=== PATIENT | male | born 1950 | race African-American/Black ===

== ENCOUNTER 2019-03-10 15:16 | Outpatient (CLI) | payer MEDICARE ==
--- NOTE | 2019-03-10 16:19 | MRI ---
MRI Upper Ext Jt Lt WO Con HISTORY: Left shoulder pain and history of fall in November 2017. History of multiple previous surgeri es. COMPARISON: None. FINDINGS: Postop acromioplasty changes are noted. There is fluid signal change within the substance o f the supraspinatus tendon there appear to be some intact bursal and articular sided fibers present although there does appear to be a bursal sided communication of this tear. This involves the almost entire tendon there is marked tendinopathy tendinosis changes of the posterior fibers. There is a delaminated element of this tear as there is fluid density extending to the musculotendinous junction of the infraspinatus tendon. There is also edema change within the muscle compatible with area of muscle strain. Tendinosis is also present within the infraspinatus tendon. There is a near-complete subscapularis tendon tear, there may be a few superior fibers still intact h owever the majority of the tendon is retracted by approximately 2.5 cm. The biceps tendon does maintain a normal position within the bicipital groove. There is tendinosis of the intra-articular po rtion of the biceps tendon with increased signal change associated the superior labrum consistent with degeneration and a chronic tear. These changes extend to involve the posterior superior labrum a lthough there are some portions of the posterior superior labrum that are relatively normal in appearance. There is marked irregularity to the posterior inferior labrum also with subchondral bony changes of the glenoid in this region. The inferior glenohumeral ligament is intact. There are also degenerative changes with findings that would suggest a chondral labral separation of the anterior in ferior labrum. There is also evidence for articular cartilage loss of the humeral head. There is mild atrophy of the subscapularis muscle, the supra and infraspinatus muscles show no signif icant atrophy. IMPRESSION: 1. Fluid density signal change within the anterior half of the supraspinatus tendon consistent with a fairly extensive intrasubstance tear, there is are a few thin bursal and articular sided fibers still intact although there does appear to be a full-thickness defect within the bursal sided fibers. There is moderate tendinosis of the more posterior aspect of the supraspinatus as well as tendinosis change of the infraspinatus tendon with a delaminating tear extending into the musculotend inous junction of the infraspinatus and edema change of the muscle belly. 2. Near-complete subscapularis tendon tear which is retracted by approximately 2.5 cm, there may be a few of the superior fibers of the subscapularis tendon still intact. 3. 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
== END 2019-03-10 15:17 | disposition home or self-care (01) ==
LOC: TBSIIMAG 15:16
PROVIDERS: ATTEND Orthopaedic Surgery
DX: M75.102 Unspecified rotator cuff tear or rupture of left shoulder, not specified as traumatic (principal); S46.912A Strain of unspecified muscle, fascia and tendon at shoulder and upper arm level, left arm, initial encounter; M25.412 Effusion, left shoulder; M19.012 Primary osteoarthritis, left shoulder

== ENCOUNTER 2019-03-28 13:15 | Outpatient (CLI) | payer MEDICARE ==
[2019-03-28 15:05] LABS: #Eosinphils 0.2 thou/uL (0.0-0.7); #Lymphocytes 2.3 thou/uL (1.20-3.40); #Monocytes 0.7 thou/uL (0.11-0.59); %Basophils 0.6 % (0.0-1.0); %Lymphocytes 32.1 % (21.0-51.0); %Monocytes 10.2 % (0.0-10.0); %Neutrophils 54.2 % (42.0-75.0); Mean Corpuscular HGB CONC 33.7 g/dL (32.0-36.0); Mean Corpuscular Hemoglobin 29.5 pg (27.0-31.0); Mean Corpuscular Volume 87.4 fL (78.0-98.0); Mean Platelet Volume 7.5 fL (7.4-10.4); Platelet Count 275 thou/uL (130-400); Red Blood Cell (RBC) Count 4.74 mill/uL (4.70-6.10); White Blood Cell (WBC) Count 7.3 thou/uL (4.8-10.8)
[2019-03-28 15:24] LABS: Anion Gap 12 mmol/L (10-20); BUN (Urea Nitrogen) 22 mg/dL (8.4-25.7); Calc. Creatinine Clearance 0 mL/min (70-130); Calcium 9.4 mg/dL (7.8-10.44); Carbon Dioxide 25 mmol/L (23-31); Chloride 105 mmol/L (98-107); Estimated GFR-MDRD 54; Glucose 120 mg/dL (80-115); Potassium 3.8 mmol/L (3.5-5.1); Sodium 138 mmol/L (136-145)
== END 2019-03-28 13:16 | disposition home or self-care (01) ==
LOC: LABBT 13:15
PROVIDERS: ATTEND Orthopaedic Surgery
DX: Z01.818 Encounter for other preprocedural examination (principal); M75.102 Unspecified rotator cuff tear or rupture of left shoulder, not specified as traumatic
CPT/HCPCS: 80048; 85025; 93005; 93010

== ENCOUNTER 2019-03-31 06:56 | Day surgery (SDC) | payer MEDICARE ==
[2019-03-28 13:42] VITALS: BMI 53.1
[2019-03-31] MEDS ORDERED: CEFAZOLIN 2 GM in Premix Bag 1 BAG IVPB SCH (07:30)
[2019-03-31] MEDS ORDERED: Midazolam HCl 2 mg/2 ml Vial ONE (08:15)
[2019-03-31] MEDS ORDERED: Fentanyl 100 MCG/2 ML VIAL ONE (08:15)
[2019-03-31] MEDS ORDERED: SUGAMMADEX SODIUM 200 MG/2 ML VIAL ONE (11:51)
[2019-03-31] MEDS ORDERED: Ropivacaine 0.5% HCl/PF (150 MG/30 ML VIAL) ONE (12:05)
[2019-03-31] MEDS ORDERED: Ropivacaine 0.2% HCl/PF (40 MG/20 ML VIAL) ONE (12:05)
[2019-03-31] MEDS ORDERED: Ropivacaine 0.2% 550 ML 550 ML NERVE BLCK SCH (12:33)
[2019-03-31] MEDS ORDERED: Promethazine HCl 25 MG/ML VIAL IM PRN (12:33)
[2019-03-31] MEDS ORDERED: HYDROcodone/Acetaminophen 10/325 mg Tablet PO PRN ×2 (12:33)
[2019-03-31] MEDS ORDERED: traMADol HCl 50 MG TAB PO PRN ×2 (12:33)
[2019-03-31] MEDS ORDERED: Zolpidem Tartrate 5 MG TAB PO PRN (12:33)
[2019-03-31] MEDS ORDERED: Ondansetron PF 4 MG/2 ML Vial IVP PRN (12:33)
[2019-03-31] MEDS ORDERED: Fentanyl 100 MCG/2 ML VIAL SLOW IVP PRN (12:34)
[2019-03-31] MEDS ORDERED: Glycopyrrolate 0.2 MG/ML 5 ML SYRINGE ONE (13:32)
[2019-03-31] MEDS ORDERED: Rocuronium Bromide 10 MG/ML (10ML VIAL) ONE (13:32)
[2019-03-31] MEDS ORDERED: PHENYLEPHRINE-NS 100 MCG/ML 10 ML SYRINGE ONE (13:32)
[2019-03-31] MEDS ORDERED: Lidocaine 1% PF 5 ML VIAL ONE (13:32)
[2019-03-31] MEDS ORDERED: ePHEDrine 50 MG/ML VIAL ONE (13:32)
[2019-03-31] MEDS ORDERED: Ondansetron PF 4 MG/2 ML Vial ONE (13:32)
[2019-03-31] MEDS ORDERED: PROPOFOL 200 MG/20 ML VIAL ONE (13:32)
--- NOTE | 2019-04-01 11:39 | OP ---
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 PROCEDURES PERFORMED: Open left shoulder acromioplasty followed by open rotator cuff repair to include supraspinatus and subscapularis, followed by open biceps tenodesis. CLOTH GRADER SUPERVISOR: Hayder Crocker PA-C ESTIMATED BLOOD LOSS: Minimal. COMPLICATIONS: None. ANESTHESIA: He had general anesthetic. He also had a preoperative block. IMPLANTS: Included BioComposite tenodesis screw to fix his biceps. We also used the 2 titanium double-loaded screws as well as one 4.75 SwiveLock for a double-row repair. DISPOSITION: He went to recovery room in stable condition. INDICATIONS: A 68-year-old male, who had an open left shoulder surgery previously nearly 25 to 30 years ago and at this time, he was found to have a large cuff tear and poor function and at this time willing to have surgery. DESCRIPTION OF PROCEDURE: After all appropriate consent forms were explained and signed, he was taken to the operating room and at this time was given general anesthetic. He was placed in a modified beach chair position with all bony prominences were well padded. At this time, the left shoulder and upper extremity were prepped and draped in standard surgical fashion. Previous incision was used and a 10 blade was used to cut down through the skin. Bovie was used to coagulate any brisk venous bleeding. Skin flaps were undermined, so that we had a portable window to work through. Anterior one-third of the deltoid was taken down off the acromion medially to the AC joint in full thickness flaps. Small anterior acromioplasty was performed as previous acromioplasty had been performed. We had access to the underlying tissue. The bursa was removed. Subscapularis tear was noted. Supraspinatus tear was noted. Biceps tendon was tagged and cut out from the joint using the scissors. The biceps tenodesis was performed in standard fashion using a BioComposite Bio-Tenodesis screw. We then performed repair of supraspinatus by freshening up the edges with a 15 blade, removing all soft tissue from its insertion site on the tuberosity, placing a double-loaded titanium anchor, running the threads to the tendon in a mattress fashion, tying these and then taking all 4 threads distal lateral for a double-row repair. A 4.75 BioComposite SwiveLock was used for this. At this time, we turned our attention to the chronic large subscapularis tear and this was freed up from the adhesions medially to the coracoid and we were then able to place a traction stitch in the subscapularis tendon. The edge was freed up and freshened up using blade and scissors. Again, we cleaned off the bony insertion, used an anchor and placed multiple sutures through this for repair of our subscapularis. This was tied down with the arm at about 20 and 25 degrees of external rotation. At this time, we thoroughly irrigated and dried our wound, placed multiple Ethibond sutures through the deltoid fascia and through the bony acromion for our repair. We then over-reamed this with a Vicryl. 2-0 Vicryl and Prolene sutures were used on skin. Bulky sterile dressing was applied. The patient was awakened and taken to recovery room in stable condition. All counts were correct at the end of the case and he received preoperative IV antibiotics. Job ID: [id number]
== END 2019-03-31 15:05 | disposition home or self-care (01) ==
LOC: SDC 06:56
PROVIDERS: ATTEND Orthopaedic Surgery
PROC: 0LM20ZZ Reattachment of Left Shoulder Tendon, Open Approach (ICD-10-PCS; principal; 2019-03-31)
PROC: 0LS20ZZ Reposition Left Shoulder Tendon, Open Approach (ICD-10-PCS; 2019-03-31)
PROC: 0LQ20ZZ Repair Left Shoulder Tendon, Open Approach (ICD-10-PCS; 2019-03-31)
PROC: 0RBH0ZZ Excision of Left Acromioclavicular Joint, Open Approach (ICD-10-PCS; 2019-03-31)
PROC: 0LS20ZZ Reposition Left Shoulder Tendon, Open Approach (ICD-10-PCS; 2019-03-31)
DX: M75.102 Unspecified rotator cuff tear or rupture of left shoulder, not specified as traumatic (principal); I10 Essential (primary) hypertension; E11.9 Type 2 diabetes mellitus without complications; E78.5 Hyperlipidemia, unspecified; I25.10 Atherosclerotic heart disease of native coronary artery without angina pectoris; G47.30 Sleep apnea, unspecified; E66.9 Obesity, unspecified; Z68.43 Body mass index [BMI] 50.0-59.9, adult; Z79.4 Long term (current) use of insulin; Z79.899 Other long term (current) drug therapy
CPT/HCPCS: 23130; 23412; 23430; 82962; A4306; C1713 ×2; 36416; J0690; J2001; J2250; J2405; J2704; J2795; J3010; J3370; J3490; J7050

== ENCOUNTER 2021-11-03 14:43 | Outpatient (CLI) | payer MEDICARE ==
[2021-11-03 16:08] LABS: Bilirubin Neg (Negative); Blood, Urine Negative (Negative); Clarity Clear (Clear); Glucose, Urine (Dipstick) >=1000 mg/dL (Negative); Ketone, Urine Negative (Negative); Leukocyte Negative (Negative); Nitrite Negative (Negative); Protein, Urine (Dipstick) 15 mg/dl (Neg-Trace); Specific Gravity, Urine 1.005 (1.002-1.036); Urobilinogen Normal mg/dL (Less than 2)
[2021-11-03 16:09] LABS: #Monocytes 0.1 10x3/uL (0.0-1.1); #Neutrophils 7.8 10x3/uL (1.5-8.4); %Basophils 0.4 % (0.0-2.0); %Eosinophils 0.1 % (0.0-6.0); %Lymphocytes 9.4 % (18.0-47.0); %Monocytes 1.6 % (0.0-10.0); %Neutrophils 88.1 % (40.0-75.0); Hemoglobin 12.7 g/dL (13.5-17.5); Mean Corpuscular HGB CONC 32.2 g/dL (32.0-36.0); Mean Corpuscular Hemoglobin 29.7 pg (27.0-33.0); Mean Corpuscular Volume 92.5 fl (81.2-95.1); Platelet Count 316 10x3/uL (150-450); Red Blood Cell (RBC) Count 4.27 10x6/uL (4.32-5.72); White Blood Cell (WBC) Count 8.9 10x3/uL (3.5-10.5)
[2021-11-04 07:58] LABS: SARS-CoV-2 PCR by NAA Not Detected (NotDetected)
== END 2021-11-03 14:44 | disposition home or self-care (01) ==
LOC: LABBT 14:43 → MERGE 14:43 → LABBT 14:44
PROVIDERS: ATTEND Orthopaedic Surgery Hand Surgery
DX: Z01.818 Encounter for other preprocedural examination (principal); Z20.822 Contact with and (suspected) exposure to COVID-19
CPT/HCPCS: 81003; 85025; 93005; 93010; U0003; U0005

== ENCOUNTER 2021-11-07 12:44 | Day surgery (SDC) | payer MEDICARE ==
[2021-11-04 09:17] VITALS: BMI 47.7
[2021-11-07] MEDS ORDERED: ceFAZolin 2 GM/DEX 5% 100 ML BAG ONE ×3 (13:51→16:38)
[2021-11-07] MEDS ORDERED: Bacitracin Zinc Ointment 30 gm TUBE ONE (16:01)
[2021-11-07] MEDS ORDERED: Bupivacaine PF 0.5% 30 ML VIAL ONE (16:01)
[2021-11-07] MEDS ORDERED: Thrombin 5000 UNITS/5 ML VIAL ONE (16:01)
[2021-11-07] MEDS ORDERED: Betamet Acet/Betamet Na Ph 30 MG/5 ML VIAL ONE (16:01)
[2021-11-07] MEDS ORDERED: Bupivacaine 0.25% 10 ML VIAL ONE (16:01)
[2021-11-07] MEDS ORDERED: Fentanyl 100 MCG/2 ML VIAL ONE ×2 (16:27→18:18)
[2021-11-07] MEDS ORDERED: ePHEDrine 50 MG/ML VIAL ONE (16:45)
[2021-11-07] MEDS ORDERED: Glycopyrrolate 0.2 MG/ML 5 ML SYRINGE ONE (16:45)
[2021-11-07] MEDS ORDERED: PROPOFOL 200 MG/20 ML VIAL ONE (16:45)
[2021-11-07] MEDS ORDERED: Ondansetron PF 4 MG/2 ML Vial ONE (16:45)
[2021-11-07] MEDS ORDERED: Dexamethasone 20 MG/5 ML VIAL ONE (16:45)
[2021-11-07] MEDS ORDERED: Lidocaine 1% PF 5 ML VIAL ONE (16:45)
[2021-11-07] MEDS ORDERED: Phenylephrine 10 MG/ML VIAL ONE (16:45)
[2021-11-07] MEDS ORDERED: Ketorolac Tromethamine 30 MG/ML VIAL ONE ×2 (18:18→18:19)
[2021-11-07] MEDS ORDERED: HYDROcodone/Acetaminophen 5/325 mg Tablet ONE (19:13)
== END 2021-11-07 19:35 | disposition home or self-care (01) ==
LOC: SDC 12:44 → MERGE 15:00 → SDC 19:35
PROVIDERS: ATTEND Orthopaedic Surgery Hand Surgery
PROC: 0LN80ZZ Release Left Hand Tendon, Open Approach (ICD-10-PCS; principal; 2021-11-07)
PROC: 0LB60ZZ Excision of Left Lower Arm and Wrist Tendon, Open Approach (ICD-10-PCS; 2021-11-07)
DX: M67.432 Ganglion, left wrist (principal); M65.352 Trigger finger, left little finger; I10 Essential (primary) hypertension; I25.10 Atherosclerotic heart disease of native coronary artery without angina pectoris; E11.9 Type 2 diabetes mellitus without complications; E78.5 Hyperlipidemia, unspecified; G47.30 Sleep apnea, unspecified; E66.9 Obesity, unspecified; Z68.42 Body mass index [BMI] 45.0-49.9, adult; Z79.4 Long term (current) use of insulin; Z79.82 Long term (current) use of aspirin; Z79.84 Long term (current) use of oral hypoglycemic drugs; Z79.899 Other long term (current) drug therapy; Z88.5 Allergy status to narcotic agent; Z91.040 Latex allergy status; Z91.048 Other nonmedicinal substance allergy status
CPT/HCPCS: 36416; 88304; J0702; J1100; J1885; J2370; J2405; J2704; J3010; J3490; S0020

== ENCOUNTER 2022-02-10 07:08 | Outpatient (CLI) | payer OTHER | END 2022-02-10 07:09 | disposition home or self-care (01) | LOC: ULT 07:08 | DX: Z01.89 Encounter for other specified special examinations (principal); K76.0 Fatty (change of) liver, not elsewhere classified; N28.1 Cyst of kidney, acquired | CPT/HCPCS: 76700 ==

== ENCOUNTER 2023-03-05 08:38 | Outpatient (CLI) | payer OTHER, MEDICARE | END 2023-03-05 08:39 | disposition home or self-care (01) | LOC: BICRAD 08:38 | PROVIDERS: ATTEND Nurse Practitioner Family | DX: M25.551 Pain in right hip (principal); M16.11 Unilateral primary osteoarthritis, right hip ==

== ENCOUNTER 2023-04-09 09:26 | Outpatient (CLI) | payer OTHER | END 2023-04-09 09:27 | disposition home or self-care (01) | LOC: NM 09:26 | PROVIDERS: ATTEND Psychiatry & Neurology Geriatric Psychiatry | DX: Z01.89 Encounter for other specified special examinations (principal) | CPT/HCPCS: 78072; A9500 ==